=== PATIENT | female | born 1980 | race Caucasian/White ===

== ENCOUNTER 2016-11-14 04:10 | Emergency (ER) | payer OTHER ==
[2016-11-14 04:16] VITALS: BP 117/72; PULSE 89; TEMP 98.2; BMI 23.8
[2016-11-14] MEDS ORDERED: KETOROLAC TROMETHAMINE 30 MG/1 ML VIAL ONE (04:39)
[2016-11-14] MEDS ORDERED: SODIUM CHLORIDE 1,000 ML IV STA (04:39)
[2016-11-14] MEDS ORDERED: KETOROLAC TROMETHAMINE 30 MG/1 ML VIAL IVPUSH ONE (04:39)
--- NOTE | 2016-11-14 04:39 | PDOC ---
History of Present Illness - General Chief Complaint: Pain, Acute Stated Complaint: ABD PAIN Time Seen by Provider: 11/14/16 04:21 - History of Present Illness Initial Comments: 11/14/16 04:43 This 35-year-old woman with a history of ovarian cysts and anxiety presents with left lower quadrant abdominal pain that awakened her approximately 3 hours prior to presentation. Patient states that she had some back pain yesterday and mild left lower quadrant abdominal pain earlier this evening. She took 2 Aleve prior to going to sleep tonight but was awakened within a few hours with severe left lower quadrant pain. She states that she has had ovarian cysts but this pain is worse she has ever had. She has had some nausea without vomiting earlier but is not nauseated now. She denies dysuria/hematuria/urinary frequency Patient has a history of small amount of clear vaginal discharge 2 days ago; she denies vaginal bleeding or malodor LMP 2 weeks ago Past History - Past Medical History Allergies/Adverse Reactions: Allergies Allergy/AdvReac Type Severity Reaction Status Date / Time No Known Allergies Allergy Verified 02/13/13 03:32 Home Medications: Ambulatory Orders Diclofenac Sodium [Voltaren -] 75 mg PO BID PRN #14 tablet. 11/14/16 Oxycodone HCl/Acetaminophen [Percocet 5-325 mg Tablet] 1 tab PO Q6H PRN #6 tablet MDD 3 tabs 11/14/16 GI Disorders: Yes (COLITIS) Psychiatric Problems: Yes (ANXIETY) Other medical history: OVARIAN CYSTS - Surgical History Abdominal Surgery: No - Reproductive History Is Patient Now?: No - Immunization History Td Vaccination: Yes Immunization Up to Date: No - Psycho/Social/Smoking Cessation Hx Anxiety: Yes Suicidal Ideation: No Smoking Status: No Smoking History: Unknown if ever smoked Have you smoked in the past 12 months: No Number of Cigarettes Smoked Daily: 0 Information on smoking cessation initiated: No Hx Alcohol Use: No Drug/Substance Use Hx: No Substance Use Type: None Review of Systems - Review of Systems Able to Perform ROS?: Yes Comments:: 12 point review of systems is negative except for what is noted in the history of present illness *Physical Exam - Vital Signs Last Vital Signs Temp Pulse Resp BP Pulse Ox 98.2 F 89 14 117/72 100 11/14/16 04:13 11/14/16 04:13 11/14/16 04:13 11/14/16 04:13 11/14/16 04:13 - Physical Exam Comments: GENERAL: Adult female, alert and oriented 3, in moderate distress secondary to left lower quadrant/left pelvic pain HEAD: Normal with no signs of trauma. EYES: PERRLA, EOMI, sclera anicteric, conjunctiva clear. ENT: Ears normal, nares patent, oropharynx clear without exudates. Dry mucous membranes. NECK: Normal range of motion, supple without lymphadenopathy, JVD, or masses. LUNGS: Breath sounds equal, clear to auscultation bilaterally. No wheezes, and no crackles. HEART:Regular rate and rhythm, normal S1 and S2 without murmur, rub or gallop. ABDOMEN:.normal bowel sounds No guarding,tenderness or rebound.No masses No distention. EXTREMITIES: Normal range of motion, no edema. No clubbing or cyanosis. No erythema, or tenderness. NEUROLOGICAL: Cranial nerves II through XII grossly intact. Normal speech. No focal neurological deficits. MUSCULOSKELETAL: Back non-tender to palpation, no CVA tenderness SKIN: Warm, Dry, normal turgor, no rashes or lesions noted. ED Treatment Course - LABORATORY CBC & Chemistry Diagram: 11/14/16 05:00 11/14/16 05:00 Medical Decision Making - Medical Decision Making 11/14/16 06:58 Patient comfortable after Toradol 30 mg IV.Laboratory evaluation workup reveals no evidence of elevated white blood cell count or other abnormality and CBC. Chemistry profile likewise shows no significant abnormality Urinalysis negative for hematuria/other abnormalities. PGU is negative. Patient will be discharged with Voltaren 75 mg up to twice a day as needed for qopx-di-scmntiii pain. She asked for stronger pain medication for breakthrough severe pain and will be given a small (#6) prescription for Percocet 5/325 to be taken up to 3 tablets a day as needed for severe pain The patient will call her dietary services director this morning to make a follow-up appointment within the next 48 hours. She will return to the emergency room if she has recurrent severe pain. *DC/Admit/Observation/Transfer Diagnosis at time of Disposition: Ovarian cyst - Discharge Dispostion Disposition: HOME Condition at time of disposition: Stable - Prescriptions Prescriptions: Oxycodone HCl/Acetaminophen [Percocet 5-325 mg Tablet] 1 tab PO Q6H PRN #6 tablet MDD 3 tabs PRN Reason: Severe Pain Diclofenac Sodium [Voltaren -] 75 mg PO BID PRN #14 tablet. PRN Reason: Pain - Patient Instructions Printed Discharge Instructions: Ovarian Cyst Additional Instructions: Call your dietary services director this morning to arrange follow-up within the next few days Diclofenac 75 mg up to twice a day as needed for moderate pain Percocet 5/325 every 6 hours as needed for severe pain (up to 3 tablets a day) Return to ER if you have persistent severe pain or developed vomiting/fever
[2016-11-14 06:09] LABS: BASOPHIL 1.2 % (0-2.0); EOSINOPHIL 1.5 % (0-4.5); MCH 32.4 pg (25.7-33.7); MCHC 33.5 g/dl (32.0-36.0); MEAN CELL VOLUME 96.5 fl (80-96); MEAN PLT VOLUME 9.2 fl (7.5-11.1); PLATELET COUNT 264 K/MM3 (134-434); RDW 12.9 % (11.6-15.6); WHITE BLOOD COUNT 7.5 K/mm3 (4.0-10.0)
[2016-11-14 06:27] LABS: ALBUMIN 4.4 g/dl (3.4-5.0); ANION GAP 10 (8-16); CALCIUM 8.8 mg/dL (8.5-10.1); CO2 25 mmol/L (21-32); GLUCOSE,RANDOM 71 mg/dL (74-106)
[2016-11-14 06:33] LABS: ALK PHOS 67 U/L (45-117); BILIRUBIN,TOTAL 0.2 mg/dL (0.2-1.0); CREATININE 0.5 mg/dL (0.55-1.02); SGOT/AST 19 U/L (15-37); SGPT/ALT 20 U/L (12-78); TOT PROT 7.6 g/dl (6.4-8.2)
[2016-11-14 06:39] LABS: URINE APPEARANCE CLEAR; URINE BILIRUBIN NEGATIVE (NEGATIVE); URINE BLOOD NEGATIVE (NEGATIVE); URINE COLOR COLORLESS; URINE GLUCOSE (UA) NEGATIVE (NEGATIVE); URINE KETONE NEGATIVE (NEGATIVE); URINE LEUK ESTERASE NEGATIVE (NEGATIVE); URINE NITRITE NEGATIVE (NEGATIVE); URINE PROTEIN NEGATIVE (NEGATIVE); URINE UROBILINOGEN NEGATIVE E.U./dl (0.2-1.0)
== END 2016-11-14 06:52 | disposition home or self-care (01) ==
LOC: FER 04:10
PROC: 3E0333Z Introduction of Anti-inflammatory into Peripheral Vein, Percutaneous Approach (ICD-10-PCS; principal; 2016-11-14)
PROC: 3E0337Z Introduction of Electrolytic and Water Balance Substance into Peripheral Vein, Percutaneous Approach (ICD-10-PCS; 2016-11-14)
DX: N83.209 Unspecified ovarian cyst, unspecified side (principal); F41.9 Anxiety disorder, unspecified; K52.9 Noninfective gastroenteritis and colitis, unspecified
CPT/HCPCS: 36415; 80053; 81003; 84703; 85025; 99283-25

== ENCOUNTER 2018-11-24 07:15 | Inpatient (IN) | payer BC ==
[~2018-11-24 07:15] MED LIST: ELECTROLYTE-148 SOLN 1,000 ML IV ONE
[2018-11-24 07:53] VITALS: BMI 32.1
[2018-11-24] MEDS ORDERED: ELECTROLYTE-148 SOLN 1,000 ML IV SCH (08:15)
[2018-11-24] MEDS ORDERED: CITRIC ACID/SODIUM CITRATE 30 ML UNIT-DOSE CUP PO ONE (08:30)
[2018-11-24] MEDS ORDERED: METHYLERGONOVINE MALEATE 0.2 MG/1 ML AMP IM PRN (08:49)
--- NOTE | 2018-11-24 08:49 | HP ---
Past Medical History - Primary Care Physician PCP:: Tamera Pearce - Past Medical History ...: 3 ...Para: 1 ...Term: 1 ...: 0 ...Spon : 0 ...Induced : 1 ...Multiple Gestation: 0 ...LMP: 02/22/18 ... Weeks Gestation by Dates: 40.5 ...EDC by Dates: 11/19/18 ...EDC by Sono: 11/30/18 - Smoking History Smoking history: Never smoked Have you smoked in the past 12 months: No Aproximately how many cigarettes per day: 0 - Alcohol/Substance Use Hx Alcohol Use: No Home Medications - Allergies Allergies/Adverse Reactions: Allergies Allergy/AdvReac Type Severity Reaction Status Date / Time lactose Allergy Nausea Verified 11/24/18 07:38 - Home Medications Home Medications: Ambulatory Orders Vits96/Iron Fum/Folic [ Tablet] 1 tab PO DAILY 11/24/18 Physical Exam - Maternity Vital Signs: Vital Signs Temperature 97.8 F 11/24/18 07:15 Pulse Rate 105 H 11/24/18 07:15 Respiratory Rate 16 11/24/18 07:15 Blood Pressure 103/74 11/24/18 07:15 O2 Sat by Pulse Oximetry (%)
[2018-11-24] MEDS ORDERED: KETOROLAC TROMETHAMINE 30 MG/1 ML VIAL ONE (09:08)
[2018-11-24] MEDS ORDERED: PHENYLEPHRINE HCL 10 MG/1 ML SINGLE DOSE VIAL ONE (09:08)
[2018-11-24] MEDS ORDERED: OXYTOCIN 10 UNITS/ML VIAL ONE (09:08)
[2018-11-24] MEDS ORDERED: OXYTOCIN 20 UNITS in 0.9% NS 20 UNIT/1,000 ML INFUS.BAG IV ONE ×2 (09:17→12:52)
[2018-11-24] MEDS ORDERED: ceFAZolin SODIUM 1 GM VIAL ONE (09:36)
[2018-11-24 10:23] LABS: ARTERIAL BLD GAS O2 SATURATION 36.2 % (95-98); ARTERIAL BLOOD GAS BASE EXCESS -3.4 meq/l (-2-2); ARTERIAL BLOOD GAS PCO2 60.6 mmHg (35-45)
[2018-11-24] MEDS ORDERED: TUBERCULIN PPD 5 TU/0.1ML SYRINGE (IN PATIENT USE ONLY) ID ONE (10:30)
[2018-11-24 10:34] LABS: ARTERIAL BLOOD GAS PO2 20.1 mmHg (80-105); ARTERIAL BLOOD GAS pH 7.24 (7.35-7.45)
[2018-11-24 10:35] LABS: VENOUS PH 7.38 (7.31-7.41)
--- NOTE | 2018-11-24 10:43 | OP ---
Operative Note - Note: Operative Date: 11/24/18 Pre-Operative Diagnosis: 37yo P1 @ @ 39.1wks, prior c/section for Elective repeat c/section Operation: Repeat LST c/section Findings: Normal bilateral tubes and ovaries Post-Operative Diagnosis: Same as Pre-op Surgeon: Tamera Pearce Software Administrator: Cornelio Tse Anesthesiologist/INDUSTRIAL REAL ESTATE AGENT: Irvin Carias Anesthesia: Spinal Specimens Removed: Viable female, APGARs 9/9, Wt 7.12lb. Full term placenta Estimated Blood Loss (mls): 600 Drains, Volume Out (mls): 150 Fluid Volume Replaced (mls): 1,000 Operative Report Dictated: Yes
[2018-11-24] MEDS ORDERED: IBUPROFEN 800 MG/8 ML IJ IVPB PRN (11:07)
[2018-11-24] MEDS ORDERED: OXYTOCIN 20 UNITS in 0.9% NS 20 UNIT/1,000 ML INFUS.BAG IV SCH (11:15)
[2018-11-24] MEDS: ENOXAPARIN NA (PORCINE) 40 MG/0.4 ML DISP.SYRIN SQ SCH (11:31)
--- NOTE | 2018-11-24 12:02 | PN ---
Delivery - Delivery Section: Repeat, Low Flap Transverse Type of Anesthesia: Spinal EBL (cc): 600 Delivery, Single - Stages of Labor Date of Delivery: 11/24/18 Time of Delivery: 09:32 Date Placenta Delivered: 11/24/18 Time Placenta Delivered: :34 Placenta: Yes: Expressed - Condition of Infant Cyber Incident Responder/Outpatient Services Director Present: Yes Name: Linda Noyola Gender: Female Weight: 7 lb 12 oz Position: Left, OA Total Hours ROM (Hrs/Mins): 3 minutes - 1 Minute Total Score: 9 5 Minutes Total Score: 9 - Feeding Plan Initial Plan: Exclusive throughout hospitalization
[2018-11-24] MEDS ORDERED: IBUPROFEN 800 MG/8 ML IJ IVPB ONE (13:48)
[2018-11-24] MEDS ORDERED: ACETAMINOPHEN 325 MG TABLET (FP) ONE (18:07)
[2018-11-24] MEDS: SIMETHICONE 80 MG TAB.CHEW (FP) PO PRN (18:10)
[2018-11-24] MEDS: IBUPROFEN 600 MG TABLET (FP) PO PRN (18:10)
[2018-11-24] MEDS: oxyCODONE HCL 5 MG TABLET PO PRN (22:02)
[2018-11-25] MEDS: SIMETHICONE 80 MG TAB.CHEW (FP) PO PRN ×4 (03:38→20:17)
[2018-11-25] MEDS: ACETAMINOPHEN 325 MG TABLET (FP) PO PRN ×3 (03:38→16:44)
[2018-11-25] MEDS: oxyCODONE HCL 5 MG TABLET PO PRN ×5 (03:39→20:18)
[2018-11-25] MEDS: IBUPROFEN 600 MG TABLET (FP) PO PRN ×4 (03:39→20:18)
--- NOTE | 2018-11-25 08:04 | PN ---
Post Progress Note - Subjective Subjective: Patient without acute complaints. Reports tolerating oral intake without nausea or vomiting. Ambulating without dizziness. Denies fevers or chills. Pain well controlled with oral pain medication. Pumping/breast feeding without issue. Passing flatus, no BM. Post Day: 1 Type of Delivery: Repeat C/S Vital Signs: Vital Signs Temperature 98.2 F 11/25/18 02:02 Pulse Rate 76 11/25/18 02:02 Respiratory Rate 18 11/25/18 06:00 Blood Pressure 108/44 L 11/25/18 02:02 O2 Sat by Pulse Oximetry (%) 97 11/24/18 11:17 Breast Exam: Yes: Soft Uterus: Yes: Fundus Firm, Fundus below umbilicus, Non-tender Incision: Yes: Dressing dry and intact Abdomen/GI: Yes: Abdomen soft, Tolerating PO Lochia: Yes: Rubra Lochia, amount: Small Extremities: Yes: Calves non-tender Perineum: Yes: Intact Activity: Ambulating Assessment/Plan POD#1 s/p repeat LTC/S doing well, stable, afebrile. Asymptomatic for anemia. Post op care reviewed. Continue routine care. Ambulation encouraged Advance diet as tolerated.
[2018-11-25] MEDS ORDERED: BISACODYL 10 MG SUPP.RECT RC PRN (08:49)
[2018-11-25 08:59] LABS: BASO % 0.6 % (0-2.0); EOS % 0.9 % (0-4.5); HEMATOCRIT 31.3 % (32.4-45.2); HEMOGLOBIN 10.9 GM/dL (10.7-15.3); LYMPH % 14.7 % (8-40); MCH 34.1 pg (25.7-33.7); MCHC 34.8 g/dl (32.0-36.0); MONO % 9.7 % (3.8-10.2); NEUT % 74.1 % (42.8-82.8); PLATELET COUNT 142 K/MM3 (134-434); RDW 13.3 % (11.6-15.6); WHITE BLOOD COUNT 12.1 K/mm3 (4.0-10.0)
[2018-11-25] MEDS ORDERED: PATIENT'S OWN MEDICATION (NON-FORMULARY) (Prenatal Vits96/Iron Fum/Folic [Prenatal Tablet] PO SCH (10:00)
[2018-11-25] MEDS: PRENATAL VITAMINS W/ FOLIC ACID TABLET (FP) PO SCH (10:02)
[2018-11-25] MEDS: ENOXAPARIN NA (PORCINE) 40 MG/0.4 ML DISP.SYRIN SQ SCH (10:02)
--- NOTE | 2018-11-25 11:08 | OP ---
DATE OF OPERATION: 11/24/2018 PREOPERATIVE DIAGNOSIS: A 37-year-old para 1 at 39.1 weeks, prior section, for elective repeat section. OPERATION: Repeat lower segment transverse section. FINDINGS: Normal bilateral tubes and ovaries, POSTOPERATIVE DIAGNOSIS: A 37-year-old para 1 at 39.1 weeks, prior section, for elective repeat section. SURGEON: Tamera Pearce MD ENVIRONMENTAL HEALTH TECHNOLOGIST: Cornelio Tse MD ANESTHESIOLOGIST: John Carias MD ANESTHESIA: Spinal. SPECIMENS REMOVED: Viable female, Apgars 9 and 9, weight 7 pounds 12 ounces, full-term placenta. DESCRIPTION OF THE OPERATIVE PROCEDURE: After assuring informed consent, patient was brought to the operating room where she was placed in dorsal supine position with left lateral tilt. Abdomen was prepped and draped in a sterile fashion. The Pfannenstiel skin incision was created with the scalpel and carried down to the level of fascia with the scalpel. Fascia was incised with Bovie cautery and extended bilaterally with Bovie cautery. Fascia was dissected off the rectus abdominis muscle with Bovie cautery superiorly and inferiorly. Muscle was tented with Sherry clamps and scalpel was used to enter the peritoneal cavity. Small omental adhesions were noted, clamped with the Sherry clamp, and suture ligated. The bladder retracted with the lower edge of the Edgar. The vesicouterine peritoneum identified, tented with pickup and dissected with Metzenbaum scissors bilaterally. Bladder flap was created and retracted once again with the lower edge of the Mago. Uterine incision was created with the scalpel and extended bilaterally with bandage scissors. Infants head was delivered and delivered atraumatically through the lower uterine segment incision. Rest of the infants body was delivered without any difficulty. Cord was clamped and cut. was handed to pediatricians. The piece of cord was sent for cord pH. Placenta was expressed manually. Uterus was left in situ, cleared of clots and debris. Cervix opened with ring forceps. The uterine incision was repaired with 0 Biosyn in running locking fashion. A second imbricating layer was created with 0 Biosyn. Abdomen was irrigated copiously. Excellent hemostasis was noted. Normal tubes and ovaries were identified as described above. Peritoneum was identified and repaired with 0 Biosyn. Muscle was reapproximated on top of the peritoneum. Fascia was closed with 0 Vicryl suture. Subcutaneous fat was reapproximated with 2-0 Vicryl. Subcutaneous 4-0 Biosyn V-Loc stitch was used to create subcuticular closure. ESTIMATED BLOOD LOSS: 600 mL. URINE OUTPUT: 150 mL. FLUIDS: Patient received 1000 mL of IV fluids. CONDITION: Patient tolerated the procedure well. COUNTS: Sponge and instrument counts were correct x2. . DISPOSITION: Patient was brought stable into the recovery room. Hardy [id number]
--- NOTE | 2018-11-25 14:46 | PN ---
Progress Note (short form) - Note Progress Note: Anesthesia Post op/pain S;alert and awake comfortable O: Vital Signs Temperature 99.1 F 11/25/18 10:00 Pulse Rate 72 11/25/18 10:00 Respiratory Rate 18 11/25/18 10:00 Blood Pressure 107/52 L 11/25/18 10:00 O2 Sat by Pulse Oximetry (%) 97 11/24/18 11:17 CBC, BMP 11/25/18 06:27 A/P:s/p c section Doing well post op Continue current care Brandt talley
[2018-11-26] MEDS: oxyCODONE HCL 5 MG TABLET PO PRN ×6 (00:11→21:52)
[2018-11-26] MEDS: IBUPROFEN 600 MG TABLET (FP) PO PRN ×6 (00:11→21:51)
[2018-11-26] MEDS: SIMETHICONE 80 MG TAB.CHEW (FP) PO PRN ×6 (00:11→21:51)
[2018-11-26] MEDS: ACETAMINOPHEN 325 MG TABLET (FP) PO PRN (08:30)
[2018-11-26] MEDS: ENOXAPARIN NA (PORCINE) 40 MG/0.4 ML DISP.SYRIN SQ SCH (09:41)
[2018-11-26] MEDS: PRENATAL VITAMINS W/ FOLIC ACID TABLET (FP) PO SCH (09:41)
[2018-11-27] MEDS: oxyCODONE HCL 5 MG TABLET PO PRN ×3 (01:51→10:11)
[2018-11-27] MEDS: SIMETHICONE 80 MG TAB.CHEW (FP) PO PRN ×3 (01:51→10:11)
[2018-11-27] MEDS: IBUPROFEN 600 MG TABLET (FP) PO PRN ×2 (01:52→10:12)
[2018-11-27] MEDS: ACETAMINOPHEN 325 MG TABLET (FP) PO PRN (06:18)
--- NOTE | 2018-11-27 07:07 | DS ---
Physical Exam-DIRECTOR NEWS Vital Signs: Vital Signs Temperature 97.3 F L 11/26/18 21:53 Pulse Rate 74 11/26/18 21:53 Respiratory Rate 20 11/26/18 21:53 Blood Pressure 114/74 11/26/18 21:53 O2 Sat by Pulse Oximetry (%) 97 11/24/18 11:17 Constitutional: Yes: Well Nourished, No Distress, Calm Eyes: Yes: WNL, Conjunctiva Clear, EOM Intact HENT: Yes: WNL, Atraumatic, Normocephalic Neck: Yes: WNL, Supple, Trachea Midline Cardiovascular: Yes: WNL, Regular Rate and Rhythm Respiratory: Yes: WNL, Regular, CTA Bilaterally Gastrointestinal: Yes: WNL ...Rectal Exam: Yes: WNL Renal/: Yes: WNL ....Post : Yes: Uterus firm, Uterus non-tender, Slight lochia rubra Breast(s): Yes: WNL Musculoskeletal: Yes: WNL Extremities: Yes: WNL Edema: No Integumentary: Yes: WNL Wound/Incision: Yes: Clean/Dry, Well Approximated, Sutures Intact Neurological: Yes: WNL, Alert, Oriented ...Motor Strength: WNL Psychiatric: Yes: WNL, Alert, Oriented Labs: CBC, BMP 11/25/18 06:27 Delivery - Delivery Vaginal Delivery: No Problems Section: Repeat, Low Flap Transverse Type of Anesthesia: Spinal EBL (cc): 600 Delivery, Single - Stages of Labor Date of Delivery: 11/24/18 Time of Delivery: 09:32 Time Placenta Delivered: 09:34 Placenta: Yes: Expressed - Condition of It Security Analyst/Policy Checker Present: Yes Name: Linda Noyola Gender: Female Weight: 7 lb 12 oz Position: Left, OA Total Hours ROM (Hrs/Mins): 3 minutes - 1 Minute Total Score: 9 5 Minutes Total Score: 9 - Feeding Plan Initial Plan: Exclusive throughout hospitalization Discharge Summary Reason For Visit: C SECTION Procedures: Principal: repeat LST c/s Hospital Course: no complication Condition: Good - Instructions Diet, Activity, Other Instructions: regular diet, if fever, pain, heavy vaginal bleeding call MD follow up office 1 week Referrals: Julio Noguera MD [Staff Physician] - Disposition: HOME - Home Medications Comprehensive Discharge Medication List: Ambulatory Orders Vits96/Iron Fum/Folic [ Tablet] 1 tab PO DAILY 11/24/18 Ibuprofen [Motrin -] 600 mg PO QID #28 tablet 11/27/18
[2018-11-27 08:30] LABS: BASO % 0.6 % (0-2.0); EOS % 1.4 % (0-4.5); HEMATOCRIT 33.2 % (32.4-45.2); HEMOGLOBIN 11.4 GM/dL (10.7-15.3); LYMPH % 17.2 % (8-40); MCH 33.7 pg (25.7-33.7); MCHC 34.5 g/dl (32.0-36.0); MEAN CELL VOLUME 97.8 fl (80-96); MEAN PLT VOLUME 9.4 fl (7.5-11.1); NEUT % 71.8 % (42.8-82.8); PLATELET COUNT 173 K/MM3 (134-434); RBC 3.39 M/mm3 (3.60-5.2); RDW 13.1 % (11.6-15.6); WHITE BLOOD COUNT 9.7 K/mm3 (4.0-10.0)
[2018-11-27 09:17] VITALS: BP 137/74; PULSE 88; TEMP 98.8
[2018-11-27] MEDS: ENOXAPARIN NA (PORCINE) 40 MG/0.4 ML DISP.SYRIN SQ SCH (10:13)
[2018-11-27] MEDS: PRENATAL VITAMINS W/ FOLIC ACID TABLET (FP) PO SCH (10:13)
--- NOTE | 2018-12-01 17:15 | PATH ---
Surgical Pathology Report Patient Name: KRISTIN MELGAR Med. Rec. #: [id number] /Age/Gender: 1980 (Age: 37) / F Account: [id number] Location: [facility] OBS/DIETARY DIRECTOR Taken: 11/24/2018 Received: 11/25/2018 Reported: 12/01/2018 Physicians: Tamera Pearce M.D. Specimen(s) Received PLACENTA Clinical History ,induced x1, 2013, history of fibroids, breast augmentation 2010 Final Diagnosis PLACENTA: THIRD TRIMESTER PLACENTA. TRIVASCULAR CORD. MEMBRANES WITH NO DIAGNOSTIC ABNORMALITIES. Electronically Signed Esme Bang M.D. Gross Description The specimen is received fresh labeled placenta and is a 631 gram, 23.0 x 17.5 x 2.7 cm. placenta with attached membranes and umbilical cord. The attached membranes are ernandez, translucent with focal opacities and insert marginally. The umbilical cord measures 12 cm. in length and averages 1 cm. in diameter. The cord inserts eccentrically, 3.5 cm. to the nearest margin. No true knots or strictures are identified. Cut surface of the umbilical cord reveals 3 vessels. The surface is reynoso-blue with minimal fibrin deposition and appropriate caliber vessels. The maternal surface is red-brown with focal defects. Sectioning reveals red-brown, spongy parenchyma. No lesions are identified. Intermediate School Teacher sections are submitted in three cassettes as follows: 1- membrane rolls and umbilical cord; 2-3- full thickness sections of placenta. 11/30/2018 [facility]11/30/2018
== END 2018-11-27 13:15 | disposition home or self-care (01) | DRG 788 ==
LOC: JLDR 07:15 → J3W 14:17
PROVIDERS: ADMIT Obstetrics & Gynecology; ATTEND Obstetrics & Gynecology
PROC: 10D00Z1 Extraction of Products of Conception, Low, Open Approach (ICD-10-PCS; principal; 2018-11-24)
DX: O34.211 Maternal care for low transverse scar from previous cesarean delivery (principal); O90.89 Other complications of the puerperium, not elsewhere classified; O90.81 Anemia of the puerperium; Z3A.39 39 weeks gestation of pregnancy; Z37.0 Single live birth
CPT/HCPCS: 36415; 36600; 82803; 85025; 88307-TC

== ENCOUNTER 2018-12-05 19:00 | Inpatient (IN) | payer BC ==
[2018-12-05 19:17] VITALS: BMI 28.3
[2018-12-05] MEDS ORDERED: SODIUM CHLORIDE 1,000 ML IV ONE (19:27)
[2018-12-05] MEDS ORDERED: morphine CARPU-JECT 4 MG/1 ML DISP.SYRIN IVPUSH ONE (19:27)
[2018-12-05 19:37] LABS: HCG,QUALITATIVE URINE Negative
[2018-12-05] MEDS ORDERED: morphine SULFATE 4 MG/ML VIAL ONE (19:48)
[2018-12-05 20:03] LABS: BASO % 0.3 % (0-2.0); EOS % 0.8 % (0-4.5); HEMATOCRIT 41.4 % (32.4-45.2); HEMOGLOBIN 13.6 GM/dl (10.7-15.3); MCH 32.7 pg (25.7-33.7); MCHC 32.9 g/dl (32.0-36.0); MEAN CELL VOLUME 99.5 fl (80-96); MEAN PLT VOLUME 8.3 fl (7.5-11.1); MONO % 4.7 % (3.8-10.2); NEUT % 84.2 % (42.8-82.8); PLATELET COUNT 303 K/MM3 (134-434); RBC 4.16 M/mm3 (3.60-5.2)
--- NOTE | 2018-12-05 20:04 | PDOC ---
Documentation entered by Virginia Kern SCRIBE, acting as scribe for Varinder Jeronimo MD. Varinder Jeronimo MD: This documentation has been prepared by the Erlin huerta Xhesika, SCRIBE, under my direction and personally reviewed by me in its entirety. I confirm that the documentation accurately reflects all work, treatment, procedures, and medical decision making performed by me. History of Present Illness - General Chief Complaint: Pain Stated Complaint: ABD PAIN & FEVER Time Seen by Provider: 12/05/18 19:10 History Source: Patient Exam Limitations: No Limitations - History of Present Illness Initial Comments: 12/05/18 19:32 The patient is a 37 year old female, with a significant past medical history of recent (11/24/18), IBS, colitis and anxiety who presents to the emergency department with fever and upper abdominal pain since 3pm. The patient states she had a fever of 100.4 -100.9 at 3pm, called her LEAD CASHIER and was advised to come to the ED if the fever does not subside. The patient states she took tylenol at 4pm with mild to no relief. The patient notes she had a bowel movement prior to her arrival. The patient states she had a at [facility] on 11/24/18. The patient denies chest pain, shortness of breath, headache or dizziness. The patient denies chills, nausea, vomiting, diarrhea or constipation. The patient denies dysuria, frequency, urgency or hematuria. PAST MEDICAL HISTORY: , ovarian cysts and anxiety PAST SURGICAL HISTORY: no significant history FAMILY HISTORY: no pertinent history SOCIAL HISTORY: Pt lives with family and is employed. MEDICATIONS: reviewed ALLERGIES: As per nursing notes 12/05/18 20:02 Assessment and plan: This is a 37-year-old female who comes in complaining of fever. Patient is proximally 11 days . On exam patient did have some uterine tenderness as well as tenderness in the right upper quadrant. Workup obtained including CBC, comp, blood cultures, ultrasound of gallbladder as well as pelvis. Patient given fluids and morphine for pain 12/05/18 23:25 Patient's ultrasound right upper quadrant was negative for any acute pathology however the optic ultrasound does show questionable products of retained conception and given her fever and left shift discussed with Dr. Myers the OB /FOOD SAFETY FIELD SPECIALIST who feels that this is most likely to be endometritis and patient will need to be admitted for IV antibiotics gentamicin and clindamycin. Patient will be transferred to 3 W. floor and the admitting doctor will be Dr. Myers Past History - Past Medical History Allergies/Adverse Reactions: Allergies Allergy/AdvReac Type Severity Reaction Status Date / Time lactose Allergy Nausea Verified 11/24/18 07:38 Home Medications: Ambulatory Orders Vits96/Iron Fum/Folic [ Tablet] 1 tab PO DAILY 11/24/18 Ibuprofen [Motrin -] 600 mg PO QID #28 tablet 11/27/18 Acetaminophen [Pain Reliever] 1,000 mg PO TID PRN 12/05/18 Asthma: No Cancer: No Cardiac Disorders: No Diabetes: No GI Disorders: Yes (COLITIS) HTN: No Psychiatric Problems: Yes (ANXIETY) Seizures: No Thyroid Disease: No - Surgical History Abdominal Surgery: No - Immunization History Td Vaccination: Yes Immunization Up to Date: No - Suicide/Smoking/Psychosocial Hx Smoking Status: No Smoking History: Never smoked Have you smoked in the past 12 months: No Number of Cigarettes Smoked Daily: 0 Hx Alcohol Use: No Drug/Substance Use Hx: No Substance Use Type: None Hx Substance Use Treatment: No Review of Systems - Review of Systems Able to Perform ROS?: Yes Comments:: 12/05/18 19:33 General: (+)fevers. no chills, no weakness, no weight loss HEENT: No change in vision. No sore throat,. No ear pain CardioVascular: No chest pain or shortness of breath Respiratory:No cough, or wheezing. Gastrointestinal: no nausea, vomiting, diarrhea or constipation, No rectal bleeding Genitourinary: No dysuria, hematuria, or frequency Musculoskeletal: (+) abdominal pain. No joint or muscle pain or swelling Neurologic: No headache, vertigo, dizziness or loss of consciousness Psychiatric: nor depression Skin: No rashes or easy bruising Endocrine: no increased thirst or abnormal weight change Allergic: no skin or latex allergy All other systems reviewed and normal All Other Systems: Reviewed and Negative *Physical Exam - Vital Signs Last Vital Signs Temp Pulse Resp BP Pulse Ox 99.8 F H 105 H 18 136/84 100 12/05/18 19:02 12/05/18 19:02 12/05/18 19:02 12/05/18 19:02 12/05/18 19:02 - Physical Exam Comments: 12/05/18 19:34 General: Well-nourished well-developed individual, no acute distress HEENT: Throat: Normal, tonsils normal, no erythema or exudate Neck: Supple, no meningeal signs, no lymphadenopathy Eyes::Pupils equal reactive and round, extraocular motion intact Chest: Nontender to palpation Cardiac: S1-S2 normal, regular rate and rhythm, no murmurs rubs or gallops Respiratory: Lungs clear to auscultation bilateral Abdomen: (+) tenderness on palpation of RUQ. (+) Tenderness on palpation of superpubic area. (+) bowel sounds decreased but present. Soft, nondistended. Pelvic: (+) uterine with cervical motion tenderness. No active bleeding. Extremities: Warm, dry, no cyanosis, clubbing, or edema Skin: No rashes Neuro: Alert and oriented x3, nonfocal exam, grossly intact, normal gait Psych: Normal mood and affect ED Treatment Course - LABORATORY CBC & Chemistry Diagram: 12/05/18 19:40 12/05/18 19:40 - ADDITIONAL ORDERS Additional order review: Laboratory Results 12/05/18 19:18 Urine Color Not Urine Appearance Not Urine pH 6.5 Urine Protein Negative Urine Glucose (UA) Negative Urine Ketones Negative Urine Blood 2+ H Urine Nitrite Negative Urine Bilirubin Negative Urine Urobilinogen 0.2 Ur Leukocyte Esterase Trace H Urine HCG, Qual Negative - RADIOLOGY Radiology Studies Ordered: Category Date Time Status ABDOMEN US -LIMITED [US] Stat Ultrasound 12/05/18 19:24 Ordered PELVIS(OTHER) US [US] Stat Ultrasound 12/05/18 19:26 Ordered - Medications Given in the ED: ED Medications Discontinued Medications Generic Name Dose Route Start Last Admin Trade Name Freq PRN Reason Stop Dose Admin Morphine Sulfate 4 mg 12/05/18 19:27 12/05/18 19:52 Morphine Injection - IVPUSH 12/05/18 19:28 4 mg ONCE ONE Administration *DC/Admit/Observation/Transfer Diagnosis at time of Disposition: Endometritis Fever Qualifiers: Fever type: unspecified Qualified Code(s): R50.9 - Fever, unspecified - Discharge Dispostion Condition at time of disposition: Good Decision to Admit order: Yes - Referrals Referrals: Berdichevsky,Tamera, MD [Primary Care Provider] - - Patient Instructions - Post Discharge Activity
[2018-12-05 20:12] LABS: ALBUMIN 3.7 g/dl (3.4-5.0); BILIRUBIN,TOTAL 0.5 mg/dl (0.2-1); CALCIUM 9.1 mg/dl (8.5-10); CREATININE 0.5 mg/dl (0.55-1.3); POTASSIUM 3.6 mmol/L (3.5-5.1); TOT PROT 7.3 g/dl (6.4-8.2)
[2018-12-05 20:14] LABS: EPITHELIAL CELLS FEW /hpf
[2018-12-05] MEDS ORDERED: ACETAMINOPHEN 1000 MG/100 ML VIAL (NON FORMULARY) IVPB ONE (22:12)
[2018-12-05] MEDS ORDERED: ACETAMINOPHEN INJECTION 100 ML IVPB ONE (22:13)
[2018-12-05] MEDS ORDERED: CLINDAMYCIN 900 MG PREMIX IVPB 900 MG/50 ML BAG IVPB ONE (23:20)
[2018-12-05] MEDS ORDERED: GENTAMICIN IVPB STA (23:30)
[2018-12-05] MEDS ORDERED: WATER IVPB STA (23:30)
[2018-12-05] MEDS ORDERED: DEXTROSE 5% IVPB STA (23:30)
[2018-12-05] MEDS ORDERED: CLINDAMYCIN PHOSPHATE 300 MG/2 ML VIAL ONE (23:34)
[2018-12-05] MEDS ORDERED: CLINDAMYCIN PHOSPHATE 600 MG/4 ML VIAL ONE (23:34)
[2018-12-06] MEDS ORDERED: GENTAMICIN 100 MG/100 ML BAG IVPB SCH (02:15)
[2018-12-06] MEDS: GENTAMICIN INJECTION 100 MG in SODIUM CHLORIDE 100 ML IVPB SCH ×3 (02:40→17:36)
[2018-12-06] MEDS: IBUPROFEN 600 MG TABLET (FP) PO PRN ×3 (02:41→19:55)
[2018-12-06] MEDS: ALPRAZolam 0.25 MG TABLET PO PRN ×2 (02:41→21:55)
[2018-12-06] MEDS: CLINDAMYCIN 900 MG PREMIX IVPB 900 MG/50 ML BAG IVPB SCH ×3 (04:30→19:54)
[2018-12-06] MEDS ORDERED: ACETAMINOPHEN 500 MG TABLET (FP) PO SCH (06:00)
--- NOTE | 2018-12-06 07:06 | HP ---
Admitting History and Physical - Admission History of Present Illness: 37 yo PPD #12 s/p repeat CD who presented with chief complaint of fevers on PPD # 11 Reports not well controlled with tylenol, presented to ED s/p ultrasound which was determined probable cause of endometritis and admitted to [facility] [employer] service. Patient reports no uterine tenderness, abdomninal pain Denies abnormal bleeding or discharge Denies GI complaints Is currently , hx/o implants Noticed erythema area of outer left breast, mild tenderness, no feeling of fullness Currently pumping History Source: Patient Limitations to Obtaining History: No Limitations - Past Medical History Cardiovascular: No: HTN Gastrointestinal: Yes: Irritable Bowel Disease ...LMP: 10/31/16 ...: No Psych: Yes: Anxiety - Past Surgical History Additional Past Surgical History: x2 Implants - Smoking History Smoking history: Never smoked Have you smoked in the past 12 months: No Aproximately how many cigarettes per day: 0 - Alcohol/Substance Use Hx Alcohol Use: No History of Substance Use: reports: None - Social History History of Recent Travel: No Home Medications - Allergies Allergies/Adverse Reactions: Allergies Allergy/AdvReac Type Severity Reaction Status Date / Time lactose Allergy Nausea Verified 11/24/18 07:38 - Home Medications Home Medications: Ambulatory Orders Vits96/Iron Fum/Folic [ Tablet] 1 tab PO DAILY 11/24/18 Ibuprofen [Motrin -] 600 mg PO QID #28 tablet 11/27/18 Acetaminophen [Pain Reliever] 1,000 mg PO TID PRN 12/05/18 Family Disease History - Family Disease History Family History: Denies Review of Systems - Review of Systems Constitutional: reports: No Symptoms Neck: reports: No Symptoms Cardiovascular: reports: No Symptoms Respiratory: reports: No Symptoms Genitourinary: reports: No Symptoms Musculoskeletal: reports: No Symptoms Integumentary: reports: No Symptoms Neurological: reports: No Symptoms, Seizure Hematology/Lymphatic: reports: No Symptoms Psychiatric: reports: No Symptoms Physical Examination Vital Signs: Vital Signs Temperature 98.6 F 12/06/18 06:00 Pulse Rate 85 12/06/18 06:00 Respiratory Rate 18 12/06/18 06:00 Blood Pressure 99/56 L 12/06/18 06:00 O2 Sat by Pulse Oximetry (%) 98 12/06/18 00:07 Constitutional: Yes: Well Nourished, No Distress, Calm Cardiovascular: Yes: Regular Rate and Rhythm Respiratory: Yes: Regular, CTA Bilaterally Gastrointestinal: Yes: Normal Bowel Sounds, Soft Breast(s): Yes: Other (No nipple changes, L breast erythenmatous area from 2 o' clock to 5 o'clock; patient reports mild improvement of erythema) Psychiatric: Yes: Alert, Oriented Labs: CBC, BMP 12/05/18 19:40 12/05/18 19:40 Assessment/Plan 37 yo PPD # 12 s/p repeat CD admitted for fever; differential diagnosis endometritis vs mastitis 1. Admit to [facility] [employer] service 2. On Gent/Clinda Q 8H Plan to stop antipyretics to observe symptoms If continued fevers, plan for repeat imaging; may consider ID consult 3. Regular diet and ruotine care 4. Currently desires to continue Encourage to pump/completely empty Q 3-4 hours Hx/o BZO use (x1, alprazolam) Reviewed if desires repeated use in , may consider shorter-acting without active metabolites Patient reports occasional use 5. Will continue to monitor
[2018-12-06] MEDS ORDERED: ACETAMINOPHEN 500 MG TABLET (FP) PO PRN (08:09)
[2018-12-06] MEDS ORDERED: SENNOSIDES/DOCUSATE COMBO (SENNA PLUS) TABLET (UD) PO PRN (19:49)
[2018-12-06 22:09] VITALS: PULSE 73
[2018-12-07] MEDS: CLINDAMYCIN 900 MG PREMIX IVPB 900 MG/50 ML BAG IVPB SCH ×2 (01:33→09:09)
[2018-12-07] MEDS: GENTAMICIN INJECTION 100 MG in SODIUM CHLORIDE 100 ML IVPB SCH ×2 (02:06→09:46)
[2018-12-07 08:06] LABS: BASO % 0.9 % (0-2.0); EOS % 3.2 % (0-4.5); HEMATOCRIT 37.6 % (32.4-45.2); HEMOGLOBIN 12.8 GM/dL (10.7-15.3); MCH 33.3 pg (25.7-33.7); MEAN PLT VOLUME 8.5 fl (7.5-11.1); MONO % 9.7 % (3.8-10.2); NEUT % 57.2 % (42.8-82.8); PLATELET COUNT 243 K/MM3 (134-434); RBC 3.84 M/mm3 (3.60-5.2); RDW 12.9 % (11.6-15.6); WHITE BLOOD COUNT 4.9 K/mm3 (4.0-10.0)
[2018-12-07 08:49] VITALS: BP 112/68; TEMP 98.2
[2018-12-07] MEDS: IBUPROFEN 600 MG TABLET (FP) PO PRN (09:15)
--- NOTE | 2018-12-07 10:56 | PN ---
Progress Note (SOAP) - Subjective History of Present Illness: Patient denies fevers or chills, chest pain, shortness of breath. She reports passing a blood clot ~ 3x1 cm in length yesterday No additional heavy bleeding now L breast erythema improved, mild tenderness Tolerating PO, no N/V - Current Medications Current Medications: Active Medications Acetaminophen (Tylenol -) 1,000 mg PO Q6H PRN PRN Reason: FEVER Alprazolam (Xanax -) 0.5 mg PO Q8H PRN PRN Reason: ANXIETY Last Admin: 12/06/18 21:55 Dose: 0.5 mg Clindamycin Phosphate (Cleocin 900 Mg Premix Ivpb -) 900 mg in 50 mls @ 100 mls /hr IVPB Q8H-IV PRASANNA Last Admin: 12/07/18 09:09 Dose: 100 mls/hr Gentamicin Sulfate 100 mg/ (Sodium Chloride) 102.5 mls @ 102.5 mls/hr IVPB Q8H- IV PRASANNA Last Admin: 12/07/18 09:46 Dose: 102.5 mls/hr Ibuprofen (Motrin -) 600 mg PO Q4H PRN PRN Reason: PAIN LEVEL 6-10 Last Admin: 12/07/18 09:15 Dose: 600 mg Senna/Docusate Sodium (Pericolace -) 2 tablet PO HS PRN PRN Reason: CONSTIPATION Last Admin: 12/06/18 21:55 Dose: 2 tablet - Objective Vital Signs: Vital Signs Temperature 98.2 F 12/07/18 08:42 Pulse Rate 73 12/07/18 08:42 Respiratory Rate 18 12/07/18 08:42 Blood Pressure 112/68 12/07/18 08:42 O2 Sat by Pulse Oximetry (%) 98 12/06/18 02:00 Constitutional: Yes: Well Nourished, No Distress, Calm Respiratory: Yes: Regular, CTA Bilaterally Gastrointestinal: Yes: Soft ....Post : Yes: Uterus firm (minimal tenderness) Breast(s): Yes: Other (L breast erythema with improvement) Musculoskeletal: Yes: WNL Edema: No Wound/Incision: Yes: Clean/Dry, Well Approximated, Steri Strips Neurological: Yes: Alert, Oriented Psychiatric: Yes: Alert, Oriented Labs Lab Results: CBC, BMP 12/07/18 06:31 12/05/18 19:40 Assessment/Plan 37 yo PPD # 13 s/p repeat CD, HD #2 admitted for fever; differential diagnosis endometritis vs mastitis Afebrile x 24 hours without antipyretics plan to DC Gent/Clinda, will DC home with dicloxacillin x 14 days total Plan to repeat pelvic ultrasound, if the same or improved, will DC home today with plan to repeat in [address] Pearce
== END 2018-12-07 14:00 | disposition home or self-care (01) | DRG 776 ==
LOC: FER 19:00 → J3W 12-06 00:32
PROVIDERS: ADMIT Obstetrics & Gynecology; ATTEND Obstetrics & Gynecology
DX: O86.12 Endometritis following delivery (principal); O91.22 Nonpurulent mastitis associated with the puerperium; F41.9 Anxiety disorder, unspecified; K58.9 Irritable bowel syndrome, unspecified
CPT/HCPCS: 36415; 76705-TC; 76856-TC; 80053; 81003; 81015; 84703; 85025; 87040; 99284-25; J0131; J7030

== ENCOUNTER 2018-12-29 06:52 | Day surgery (SDC) | payer BC ==
[2018-12-28 13:35] VITALS: BMI 26.4
--- NOTE | 2018-12-29 08:02 | OP ---
Operative Note - Note: Operative Date: 12/29/18 Pre-Operative Diagnosis: 38yo P2 s/p c/section POD # 35 with retained products Operation: Hysteroscopy, suction, D&C Findings: 2x3cm uterine placental cite tissue extracted - Likely subinvolution of placental site Post-Operative Diagnosis: Same as Pre-op (subinvolution of placental site) Surgeon: Tamera Pearce Anesthesiologist/DISHWASHER PREPARER: Lucrecia Freitas MD Anesthesia: General Estimated Blood Loss (mls): 400 Instrument used (Debridements only): Suction curettage Drains, Volume Out (mls): 75 Fluid Volume Replaced (mls): 800 Operative Report Dictated: Yes
--- NOTE | 2018-12-29 08:02 | HP ---
History & Physical Update - History History: No Change - Physical Physical: No Change - Assessment Assessment: No Change - Plan Plan: No Change (Procedure explained to the patient, consent signed and witnessed)
[2018-12-29] MEDS ORDERED: MIDAZOLAM HCL 2 MG/2 ML SINGLE DOSE VIAL ONE ×2 (08:03)
[2018-12-29] MEDS ORDERED: ceFAZolin SODIUM 1 GM VIAL IVPB ONE (08:04)
[2018-12-29] MEDS ORDERED: PROPOFOL 20 ML ONE ×2 (08:09)
[2018-12-29] MEDS ORDERED: SUCCINYLCHOLINE CHLORIDE 200 MG/10 ML SYRINGE ONE (08:10)
[2018-12-29] MEDS ORDERED: DEXAMETHASONE SOD PHOSPHATE 4 MG/1 ML VIAL ONE (08:47)
[2018-12-29] MEDS ORDERED: OXYTOCIN 10 UNITS/ML VIAL ONE (08:47)
[2018-12-29] MEDS ORDERED: LIDOCAINE HCL/PF 2% SDV 5ML VIAL ONE (08:47)
[2018-12-29] MEDS ORDERED: ceFAZolin SODIUM 1 GM VIAL ONE (08:47)
[2018-12-29] MEDS ORDERED: SODIUM CHLORIDE 0.9% P/F 10 ML VIAL IJ ONE (08:47)
[2018-12-29] MEDS ORDERED: ONDANSETRON 4 MG/2 ML VIAL IVPUSH PRN ×2 (09:12→09:21)
[2018-12-29] MEDS ORDERED: IBUPROFEN 800 MG/8 ML IJ IVPB PRN (09:12)
[2018-12-29] MEDS ORDERED: IBUPROFEN 600 MG TABLET (FP) PO PRN (09:12)
[2018-12-29] MEDS ORDERED: oxyCODONE HCL 5 MG TABLET PO PRN ×2 (09:12→09:21)
[2018-12-29] MEDS ORDERED: METHYLERGONOVINE MALEATE 0.2 MG/1 ML AMP IM ONE (09:15)
[2018-12-29] MEDS ORDERED: ELECTROLYTE-148 SOLN 1,000 ML IV SCH (09:15)
[2018-12-29] MEDS ORDERED: PROMETHAZINE HCL 25 MG/1 ML VIAL IVPUSH PRN (09:21)
[2018-12-29] MEDS ORDERED: LACTATED RINGERS SOLUTION 1,000 ML IV SCH (09:30)
[2018-12-29 10:04] LABS: HEMATOCRIT 33.1 % (32.4-45.2); HEMOGLOBIN 11.2 GM/dL (10.7-15.3); MCH 32.5 pg (25.7-33.7); MCHC 33.7 g/dl (32.0-36.0); MEAN CELL VOLUME 96.4 fl (80-96); PLATELET COUNT 227 K/MM3 (134-434); RBC 3.43 M/mm3 (3.60-5.2); RDW 12.8 % (11.6-15.6); WHITE BLOOD COUNT 6.3 K/mm3 (4.0-10.0)
[2018-12-29 11:21] VITALS: TEMP 98.6
[2018-12-29] MEDS ORDERED: IBUPROFEN 600 MG TABLET (FP) PO ONE ×2 (11:36→11:40)
[2018-12-29 13:30] VITALS: BP 109/68; PULSE 62
[2018-12-29] MEDS ORDERED: oxyCODONE HCL 5 MG TABLET PO ONE (13:45)
[2018-12-29] MEDS ORDERED: oxyCODONE HCL 5 MG TABLET ONE (13:46)
--- NOTE | 2018-12-29 21:51 | OP ---
DATE OF OPERATION: 12/29/2018 PREOPERATIVE DIAGNOSIS: A 38-year-old, para 2, status post section, postoperative day 35, with retained products of conception. OPERATION: Hysteroscopy, suction dilation and curettage. FINDINGS: A 2 x 3 cm uterine placental site tissue extraction, likely subinvolution of placental site. POSTOPERATIVE DIAGNOSIS: A 38-year-old, para 2, status post section, postoperative day 35, with retained products of conception. SURGEON: Tamera Pearce MD ANESTHESIOLOGIST: Lucrecia Freitas MD ANESTHESIA: General. ESTIMATED BLOOD LOSS: 400 mL. URINE OUTPUT: 75 mL. FLUID VOLUME: 800. DESCRIPTION OF THE OPERATIVE PROCEDURE: After assuring informed consent, patient was brought to the operating room. After assuring adequate anesthesia, the patient was placed in dorsal lithotomy position. Perineum and vagina prepped and draped in sterile fashion. Cervix was found to be soft, easily dilated to accommodate up to 9-gauge plastic curette. Intrauterine contents were suctioned. The piece of the retained product was delivered, was found to be white, not found to be infected, no foul odor detected, and sent to Pathology. The patient started bleeding excessively and oxytocin and Methergine were administered. Fundal massage was provided. Bleeding was stopped and patient was brought to the recovery room in stable condition. All instruments and sponge count was correct x2. Patient tolerated procedure well, brought stable to the recovery room. Hardy KIMBROUGH/[id number]
--- NOTE | 2019-01-01 11:52 | PATH ---
Surgical Pathology Report Patient Name: KRISTIN MELGAR [facility]. Rec. #: [id number] /Age/Gender: 1980 (Age: 38) / F Account: [id number] Location: [facility] Taken: 12/29/2018 Received: 12/29/2018 Reported: 01/01/2019 Physicians: Tamera Pearce M.D. Specimen(s) Received PRODUCTS OF CONCEPTION Clinical History Endometritis Final Diagnosis PRODUCTS OF CONCEPTION, SUCTION DILATION AND CURETTAGE: PLACENTAL TISSUE AND DECIDUA WITH PATCHY AREAS OF MARKED ACUTE AND CHRONIC INFLAMMATION AND NECROSIS CONSISTENT WITH RETAINED PRODUCTS OF CONCEPTION. Electronically Signed Karen Arguelles M.D. Gross Description Received in formalin labeled "products of conception," is a 5.3 x 3.5 x 1.0 cm aggregate of ernandez brown soft tissue fragments. Probable villous tissue is identified. No somatic tissue is identified. A technical sales representatives portion is submitted in one cassette. /12/30/2018 [facility]12/30/2018
== END 2018-12-29 15:00 | disposition home or self-care (01) ==
LOC: JASU-SURG 06:52
PROVIDERS: ATTEND Obstetrics & Gynecology
PROC: 0UDB7ZZ Extraction of Endometrium, Via Natural or Artificial Opening (ICD-10-PCS; principal; 2018-12-29 07:30)
PROC: 0UJD8ZZ Inspection of Uterus and Cervix, Via Natural or Artificial Opening Endoscopic (ICD-10-PCS; 2018-12-29 07:30)
DX: O73.1 Retained portions of placenta and membranes, without hemorrhage (principal); O90.89 Other complications of the puerperium, not elsewhere classified
CPT/HCPCS: 36415; 76856-TC; 84703; 85027; 94760

== ENCOUNTER 2021-04-01 17:27 | Emergency (ER) | payer BC, OTHER ==
[2021-04-01 17:50] VITALS: BP 121/87; PULSE 87; TEMP 98.9; BMI 26.6
[2021-04-01] MEDS ORDERED: MAG HYDROX/AL HYDROX/SIMETH 30 ML UNIT-DOSE CUP PO ONE (18:00)
[2021-04-01] MEDS ORDERED: SODIUM CHLORIDE 1,000 ML IV STA (18:00)
[2021-04-01] MEDS ORDERED: FAMOTIDINE 20 MG/50 ML IVPB 20 MG/50 ML MG IVPB ONE ×2 (18:00→18:21)
[2021-04-01] MEDS ORDERED: ONDANSETRON 4 MG/2 ML VIAL IVPUSH ONE (18:08)
[2021-04-01] MEDS ORDERED: ONDANSETRON 4 MG/2 ML VIAL ONE (18:21)
[2021-04-01] MEDS ORDERED: MAG HYDROX/AL HYDROX/SIMETH 30 ML UNIT-DOSE CUP ONE (18:21)
[2021-04-01] MEDS ORDERED: ACETAMINOPHEN INJECTION 100 ML IVPB ONE (18:32)
[2021-04-01] MEDS ORDERED: ACETAMINOPHEN 1000 MG/100 ML VIAL IVPB ONE (18:46)
[2021-04-01 18:57] LABS: BASO % 1.6 % (0-2.0); EOS % 1.1 % (0-4.5); HEMATOCRIT 38.7 % (32.4-45.2); LYMPH % 23.9 % (8-40); MCH 32.9 pg (25.7-33.7); MCHC 33.6 g/dl (32.0-36.0); MEAN CELL VOLUME 97.9 fl (80-96); MEAN PLT VOLUME 8.6 fl (7.5-11.1); MONO % 6.1 % (3.8-10.2); NEUT % 67.3 % (42.8-82.8); PLATELET COUNT 262 10^3/uL (134-434); RBC 3.95 M/mm3 (3.60-5.2); RDW 11.9 % (11.6-15.6); WHITE BLOOD COUNT 7.3 K/mm3 (4.0-10.8)
[2021-04-01] MEDS ORDERED: morphine CARPU-JECT 4 MG/1 ML DISP.SYRIN IVPUSH ONE (19:02)
[2021-04-01 19:14] LABS: ALBUMIN 4.4 g/dl (3.4-5.0); BILIRUBIN,TOTAL 0.5 mg/dl (0.2-1); CALCIUM 8.6 mg/dl (8.5-10); CREATININE 0.5 mg/dl (0.55-1.3); TOT PROT 7.2 g/dl (6.4-8.2)
[2021-04-01] MEDS ORDERED: morphine SULFATE 4 MG/ML VIAL ONE (19:14)
[2021-04-01 20:15] LABS: LIPASE 70 U/L (73-393)
[2021-04-01] MEDS ORDERED: KETOROLAC TROMETHAMINE 30 MG/1 ML VIAL IVPUSH ONE (23:34)
[2021-04-01] MEDS ORDERED: KETOROLAC TROMETHAMINE 30 MG/1 ML VIAL ONE (23:35)
== END 2021-04-01 23:57 | disposition home or self-care (01) ==
LOC: FER 17:27
PROC: 3E033GC Introduction of Other Therapeutic Substance into Peripheral Vein, Percutaneous Approach (ICD-10-PCS; principal; 2021-04-01)
DX: K29.70 Gastritis, unspecified, without bleeding (principal); R21 Rash and other nonspecific skin eruption; K76.0 Fatty (change of) liver, not elsewhere classified
CPT/HCPCS: 36415; 74177-TC; 76705-TC; 80053; 82550; 83690; 84484; 85025; 99285-25; J0131; Q9967